=== PATIENT | female | born 2000 | race African-American/Black ===

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

== ENCOUNTER 2019-01-27 16:55 | Emergency (ER) | payer SELFPAY | END 2019-01-27 18:33 | disposition home or self-care (01) | LOC: ERS 16:55 | DX: R11.2 Nausea with vomiting, unspecified (principal); F32.9 Major depressive disorder, single episode, unspecified | CPT/HCPCS: 99281 ==